=== PATIENT | female | born 1970 | race Hispanic/Latino ===

== ENCOUNTER 2016-09-17 17:19 | Emergency (ER) | payer BC ==
[~2016-09-17] VITALS: Ht 162.6 cm; Wt 59.4 kg
[~2016-09-17 17:19] MED LIST: ALTOPREV10 MG PO; CIPRO500 MG PO; ENDOCET 5-3251 EACH PO; FORTAMET500 MG PO; GLUCOPHAGE500 MG PO; IBUPROFEN800 MG PO; LOVASTATIN40 MG PO; MEDROL DOSEPAK4 MG PO; MEVACOR10 M1 PO; MOTRIN600 MG PO; NATURAL VITA400 UNI2 PO; PERCOCET 5/31 TABLET PO; VIBRAMYCIN100 MG PO; ZOFRAN4 MG PO
[2016-09-17 17:45] LABS: HEMATOCRIT 38.2 % (36.0-46.0); MCH 27.8 PG (29.0-34.0); MCV 84.1 FL (83-99); MEAN PLAT.VOLUME 8.8 uM^3 (9.5-12.4); PLATELET COUNT 292 K/uL (156-360); RBC DIS.WIDTH-CV 13.2 % (11.8-14.6); RBC DIS.WIDTH-SD 40.6 % (39-53); RED BLOOD COUNT 4.54 M/uL (3.80-5.20)
[2016-09-17 17:53] LABS: CHLORIDE 108 mEq/L (99-109); POTASSIUM 3.5 mEq/L (3.7-5.4); SODIUM 143 mEq/L (136-147)
[2016-09-17 17:55] LABS: GLUCOSE 123 mg/dL (70-99)
[2016-09-17 17:56] LABS: D-DIMER ELISA 0.16 mg/L FEU (< 0.57)
[2016-09-17 17:57] LABS: ANION GAP 12 MEQ/L (2-14)
[2016-09-17 17:59] LABS: GFR ESTIMATE (CALCULATED) > 59 mL/min/
[2016-09-17 18:00] LABS: UREA NITROGEN (BUN) 12 mg/dL (9-23)
[2016-09-17 18:05] LABS: TROP-I INTERPRETATION NEGATIVE; TROPONIN-I < 0.01 ng/mL (0.0-0.30)
[2016-09-17 18:08] LABS: QUANTITATIVE HCG < 4.0 MIU/ML
[2016-09-17] MEDS ORDERED: ZANTAC150 MG PO (19:17)
[2016-09-17] MEDS ORDERED: MEDROL DOSEPAK4 MG PO (19:17)
[2016-09-17 20:03] VITALS: BP 112/63
== END 2016-09-17 20:05 | disposition home or self-care (01) ==
LOC: EME 17:19
PROVIDERS: Emergency Medicine
DX: R07.89 Other chest pain (principal); R51 Headache; E11.9 Type 2 diabetes mellitus without complications; Z90.710 Acquired absence of both cervix and uterus
CPT/HCPCS: 71020; 80048; 84484; 84702; 85027; 85379; 93005; 94640; 99281; 99283